=== PATIENT | male | born 1935 | race Caucasian/White ===

== ENCOUNTER 2018-11-20 08:46 | Day surgery (SDC) | payer MEDICARE, OTHER ==
[~2018-11-20] VITALS: Ht 167.6 cm; Wt 103.0 kg
[~2018-11-20 08:46] MED LIST: ALBU90OI INH; DOCU100 PO; FURO40 PO; Flomax0.4 MG PO; HYDACE25S PR; Klor-Con 1010 MEQ PO; LEVO750 PO; LISI5 PO; METO50 PO; METO50ER PO; METR500 PO; Norco 5-325 Ta1 EACH PO; OMEP20ER; OMEPRAZOLE20 MG PO; POTCHL20ER PO; Prednisone20 MG PO; Prinivil10 MG PO; Senna8.6 MG PO; TRAM50 PO; WARF5 PO; XARELTO10 MG PO; XARELTO20 MG PO; [UNRECOGNIZED DRUG - REMARK]
--- NOTE | 2018-11-20 09:25 | NUR ---
INTO SDS TWO IDENTIFIERS. ADMISSION STARTED.
--- NOTE | 2018-11-20 10:02 | NUR ---
BENY FORM SIGNED. CLIP AND PREP DONE BY PEDRO LUIS.[facility]. ANTIBIOTIC ORDERED OKAY TO GIVE PER PHYSCICIAM WITH PATIENT NOTED ALLERGIES.
--- NOTE | 2018-11-20 12:20 | NUR ---
11/20/18 1220 Dallas Arrington ANCEF 2GM GIVEN IVPB @1139, right wrist
--- NOTE | 2018-11-20 15:05 | NUR ---
PT ARRIVED TO UNIT VIA STRETCHER, A/0 X 4, PLEASANT. NO N/V, PAIN IN R QUADRANTS 04/07, MEDICATED PER NOV, WILL REASSESS. VSS, POST OP VS COMMENCED
--- NOTE | 2018-11-20 17:52 | NUR ---
shift summary: pt tolerated PO intake, no n/v. pt states he is hungry. pt tolerated ambulating to bathroom with standby assist. pt states pain controlled per MAR. post op vss and complete. pt remained a/o x 4, pleasant/cooperative. pt received on visitor post op
--- NOTE | 2018-11-21 07:00 | NUR ---
A+O, ROSEBUD, call light in reach, saline locked, successfully treated for abdm pain but still felt pressur, sbar report provided to oncoming day shift
[2018-11-21] MEDS ORDERED: HYDR1TAB94 PO (12:35)
--- NOTE | 2018-11-21 14:35 | NUR ---
DISCHARGE SUMMARY: TOLERATING PO INTAKE. REPORTS PAIN WELL CONTROLLED WITH PO PAIN MED. HE IS INDEPEND IN ROOM. VSS. NO ACUTE CHANGES T/O DAY. HE IS DRESSING NOW AND RIDE IS ON THE WAY. D/C INSTRUCTIONS PROVIDED TO PT WITH HARD SCRIPT FOR DK.
== END 2018-11-21 14:56 | disposition home or self-care (01) ==
LOC: ORSCMMR 08:46 → ORD 10:30 → ORSCMMR 10:30 → SURS 14:22 → ORSCMMR 11-21 14:56
DX: K80.11 Calculus of gallbladder with chronic cholecystitis with obstruction (principal); K42.9 Umbilical hernia without obstruction or gangrene; I10 Essential (primary) hypertension; I48.91 Unspecified atrial fibrillation; Z79.01 Long term (current) use of anticoagulants; K21.9 Gastro-esophageal reflux disease without esophagitis; Z86.73 Personal history of transient ischemic attack (TIA), and cerebral infarction without residual deficits; E66.9 Obesity, unspecified; Z68.35 Body mass index [BMI] 35.0-35.9, adult; Z79.899 Other long term (current) drug therapy
CPT/HCPCS: 74300; 88304; C1729; J0690; J1100; J1885; J2370; J2405; J2710; J3010; J7120

== ENCOUNTER 2020-01-30 11:34 | Emergency (ER) | payer MEDICARE, OTHER ==
[~2020-01-30] VITALS: Ht 170.2 cm; Wt 104.3 kg
[~2020-01-30 11:34] MED LIST changes: +HYDR1TAB94 PO
[2020-01-30] MEDS ORDERED: Kristalose20 GM PO (14:04)
[2020-01-30] MEDS ORDERED: Miralax17 GM PO (14:04)
== END 2020-01-30 14:22 | disposition home or self-care (01) ==
LOC: ER 11:34
DX: K59.00 Constipation, unspecified (principal); I10 Essential (primary) hypertension; E11.9 Type 2 diabetes mellitus without complications; Z88.2 Allergy status to sulfonamides; Z88.0 Allergy status to penicillin; Z79.899 Other long term (current) drug therapy; Z79.51 Long term (current) use of inhaled steroids
CPT/HCPCS: 74018; 99283-25

== ENCOUNTER 2020-05-25 17:53 | Inpatient (IN) | payer MEDICARE, OTHER ==
[~2020-05-25] VITALS: Ht 165.1 cm; Wt 104.4 kg
[~2020-05-25 17:53] MED LIST changes: -FURO40 PO; -Klor-Con 1010 MEQ PO; +Kristalose20 GM PO; -METO50ER PO; +Miralax17 GM PO; -XARELTO20 MG PO
[2020-05-25 19:00] LABS: BASOPHILS ABSOLUTE AUTO 0.07 K/mm3 (0.00-0.23); BASOPHILS PERCENT AUTO 1 % (0-2); EOSINOPHILS ABSOLUTE AUTO 0.16 K/mm3 (0.00-0.68); EOSINOPHILS PERCENT AUTO 3 % (0-6); Hematocrit 44.2 % (37.0-53.0); IMMATURE GRAN ABSOLUTE AUTO 0.07 K/mm3 (0.00-0.10); IMMATURE GRAN PERCENT AUTO 1 % (0-1); LYMPHOCYTES ABSOLUTE AUTO 1.31 K/mm3 (0.84-5.20); LYMPHOCYTES PERCENT AUTO 21 % (21-46); MONOCYTES ABSOLUTE AUTO 0.77 K/mm3 (0.16-1.47); MONOCYTES PERCENT AUTO 13 % (4-13); Mean Corpuscular HGB 35.1 pg (26.0-34.0); Mean Corpuscular HGB Conc 33.9 g/dL (31.5-36.5); Mean Corpuscular Volume 104 fL (80-100); Mean Platelet Volume 9.6 fL (9.1-12.4); NEUTROPHILS ABSOLUTE AUTO 3.74 K/mm3 (1.96-9.15); NEUTROPHILS PERCENT AUTO 61 % (41-73); Platelet Count 148 K/mm3 (150-400); RDW Coefficient Variation 13.6 % (11.7-14.2); RDW Standard Deviation 52.3 fL (35.1-46.3); Red Blood Cell Count 4.27 M/mm3 (4.30-5.90); White Blood Cell Count 6.12 K/mm3 (4.00-11.30)
[2020-05-25 19:58] LABS: Albumin, Blood 3.6 g/dL (3.4-5.0); Albumin/Globulin Ratio 0.9 (0.8-1.8); Bilirubin, Total 0.7 mg/dL (0.1-1.0); Bun/Creatinine Ratio 6.2 (12.0-20.0); Calcium, Blood 8.3 mg/dL (8.5-10.1); Creatinine, Blood 1.29 mg/dL (0.60-1.20); Globulin, Blood 3.9 g/dL (2.2-4.0); Potassium, Blood 3.9 mmol/L (3.5-5.5); Total Protein, Blood 7.5 g/dL (6.4-8.2)
[2020-05-25] MEDS ORDERED: FURO40 PO (22:34)
[2020-05-25] MEDS ORDERED: Prinivil10 MG PO (22:35)
[2020-05-25] MEDS ORDERED: Klor-Con 1010 MEQ PO (22:35)
[2020-05-25] MEDS ORDERED: XARELTO20 MG PO (22:35)
[2020-05-25] MEDS ORDERED: PARO10 PO (22:36)
[2020-05-25] MEDS ORDERED: SEROQUEL100 MG PO (22:37)
[2020-05-25] MEDS ORDERED: METO50ER PO (22:37)
--- NOTE | 2020-05-26 00:24 | NUR ---
REPORT RECEIVED FROM LEEED RN. PT TRANSPORTED TO MEDICAL FLOOR VIA GURNEY, AMBULATED TO BED ON ARRIVAL TO ROOM. ORIENTED PT TO ROOM AND UNIT, SITUATED IN BED. NO S/S ACUTE DISTRESS NOTED, RESPS EVEN AND UNLABORED. DENIES NEEDS AT THIS TIME, CALL LIGHT, POSSESSIONS IN REACH, WILL CONTINUE TO MONITOR.
[2020-05-26 01:44] LABS: Anion Gap 7 mmol/L (6-16); Blood Urea Nitrogen 8 mg/dL (8-24); Bun/Creatinine Ratio 5.9 (12.0-20.0); CO2, Blood 24 mmol/L (21-32); Calcium, Blood 7.8 mg/dL (8.5-10.1); Chloride, Blood 107 mmol/L (98-108); Creatinine, Blood 1.36 mg/dL (0.60-1.20); Glomerular Filtration Rate 53 (60-); Glucose, Blood 112 mg/dL (70-99); Potassium, Blood 3.6 mmol/L (3.5-5.5); Sodium, Blood 138 mmol/L (136-145)
[2020-05-26 01:48] LABS: BASOPHILS ABSOLUTE AUTO 0.07 K/mm3 (0.00-0.23); BASOPHILS PERCENT AUTO 1 % (0-2); EOSINOPHILS ABSOLUTE AUTO 0.15 K/mm3 (0.00-0.68); EOSINOPHILS PERCENT AUTO 2 % (0-6); Hematocrit 42.6 % (37.0-53.0); Hemoglobin 13.9 g/dL (13.5-17.5); IMMATURE GRAN ABSOLUTE AUTO 0.12 K/mm3 (0.00-0.10); IMMATURE GRAN PERCENT AUTO 2 % (0-1); LYMPHOCYTES ABSOLUTE AUTO 1.31 K/mm3 (0.84-5.20); LYMPHOCYTES PERCENT AUTO 20 % (21-46); MONOCYTES ABSOLUTE AUTO 1.03 K/mm3 (0.16-1.47); MONOCYTES PERCENT AUTO 15 % (4-13); Mean Corpuscular HGB 34.5 pg (26.0-34.0); Mean Corpuscular HGB Conc 32.6 g/dL (31.5-36.5); Mean Corpuscular Volume 106 fL (80-100); Mean Platelet Volume 9.4 fL (9.1-12.4); NEUTROPHILS ABSOLUTE AUTO 4.05 K/mm3 (1.96-9.15); NEUTROPHILS PERCENT AUTO 60 % (41-73); Platelet Count 131 K/mm3 (150-400); RDW Coefficient Variation 13.5 % (11.7-14.2); RDW Standard Deviation 53.5 fL (35.1-46.3); Red Blood Cell Count 4.03 M/mm3 (4.30-5.90); White Blood Cell Count 6.73 K/mm3 (4.00-11.30)
--- NOTE | 2020-05-26 04:24 | NUR ---
SHIFT SUMMARY PT HAS HAD NO ACUTE EVENTS SINCE ARRIVAL TO MEDICAL FLOOR. SLEPT ON AND OFF. WAS MONITORED EVERY 1-2 HOURS WITH NEEDS MET. ASLEEP AT THIS TIME. AWAITING ORTHOPEDIC CONSULT. DENIES NEEDS AT THIS TIME. CALL LIGHT, POSSESSIONS IN REACH, WILL CONTINUE TO MONITOR.
--- NOTE | 2020-05-26 16:27 | NUR ---
SHIFT SUMMARY- PT IS A/O, PLESANT AND COOPERATIVE. HE HAS SOME INTERMITENT CONFUSION. HE IS RECIEVING IV ABX. HE IS EATING AND DRINKING WELL. HE IS 1 ASSIST TO THE RESTROOM. HE TOOK A SHOWER THIS MORNING. CONSULTATION TO DR. CERVANTES BY NIGHT RN. CALLED AND LEFT MESSAGE TO VERIFY.
[2020-05-27] MEDS ORDERED: QUET100 PO (03:24)
[2020-05-27] MEDS ORDERED: PARO10 PO (03:27)
--- NOTE | 2020-05-27 03:54 | NUR ---
SHIFT SUMMARY: VSS. AFEB. AAOX3. 02 97% ON RA. LLE WHEEPING CLEAR SEROUS FLUID FROM OPEN BLISTER ON MEDIAL ASPECT OF CALF. INTACT BLISTERS SCATTERED ACROSS LEFT CALF/KAM. BRUISING VISIBLE THROUGHOUT LEFT CALF/KAM/ANKLE. LLE MORE SWOLLEN THAN RIGH; NON-PITTING EDEMA. DENIES N/T. DENIES PAIN. STATES LLE HURTS MORE IN THE AM. UP INDEPENDENTLY IN ROOM. ABD CONT TO APPEAR LARGE, ROUND, AND DISTENDED. PT STATES IT IS NORMAL FOR HIS ABD TO APPEAR LARGER OR SMALLER DEPENDING ON THE DAY. REPORTS NORMAL BM'S. STOOL SOFTENERS ADMINISTERED PER EMAR. DENIES N/V. IV ABT INFUSED PER ORDERS. NO ACUTE CHANGES OVERNIGHT. WILL CONT TO MONITOR.
[2020-05-27 06:03] LABS: BASOPHILS ABSOLUTE AUTO 0.04 K/mm3 (0.00-0.23); BASOPHILS PERCENT AUTO 1 % (0-2); EOSINOPHILS ABSOLUTE AUTO 0.19 K/mm3 (0.00-0.68); EOSINOPHILS PERCENT AUTO 3 % (0-6); Hematocrit 38.2 % (37.0-53.0); Hemoglobin 12.7 g/dL (13.5-17.5); IMMATURE GRAN ABSOLUTE AUTO 0.08 K/mm3 (0.00-0.10); IMMATURE GRAN PERCENT AUTO 1 % (0-1); LYMPHOCYTES ABSOLUTE AUTO 1.18 K/mm3 (0.84-5.20); LYMPHOCYTES PERCENT AUTO 21 % (21-46); MONOCYTES ABSOLUTE AUTO 0.92 K/mm3 (0.16-1.47); MONOCYTES PERCENT AUTO 16 % (4-13); Mean Corpuscular HGB 34.5 pg (26.0-34.0); Mean Corpuscular HGB Conc 33.2 g/dL (31.5-36.5); Mean Corpuscular Volume 104 fL (80-100); Mean Platelet Volume 9.6 fL (9.1-12.4); NEUTROPHILS ABSOLUTE AUTO 3.21 K/mm3 (1.96-9.15); NEUTROPHILS PERCENT AUTO 57 % (41-73); Platelet Count 130 K/mm3 (150-400); RDW Coefficient Variation 13.5 % (11.7-14.2); RDW Standard Deviation 51.8 fL (35.1-46.3); Red Blood Cell Count 3.68 M/mm3 (4.30-5.90); White Blood Cell Count 5.62 K/mm3 (4.00-11.30)
[2020-05-27 06:19] LABS: Anion Gap 6 mmol/L (6-16); Blood Urea Nitrogen 10 mg/dL (8-24); Bun/Creatinine Ratio 8.3 (12.0-20.0); CO2, Blood 23 mmol/L (21-32); Calcium, Blood 8.8 mg/dL (8.5-10.1); Chloride, Blood 108 mmol/L (98-108); Creatinine, Blood 1.21 mg/dL (0.60-1.20); Glomerular Filtration Rate >60 (60-); Glucose, Blood 108 mg/dL (70-99); Sodium, Blood 137 mmol/L (136-145)
--- NOTE | 2020-05-27 10:06 | NUR ---
LACTATED RINGER RECEIVED VERBAL ORDER TO D/C LR PER DR. CARDENAS.
--- NOTE | 2020-05-27 17:07 | NUR ---
Shift Summary A/Ox3, pleasant and cooperative with care. Up in room independently, calls for needs appropriately. No c/o pain in lower left extremity. Dr. Quinn consulted with patiet this morning, rapid COVID completed, planning for I&D tomorrow. Patient is to be NPO after midnight tonight. Patient appears to be slightly dyspneic with exertion this morning though denies SOB. LR d/c, diuretics ordered by Hospitalist. L/S with crackles at bases with mild wheezes all over. SCD to RLE. Good appetite. Blisters continue to drain. No new concerns, will continue to monitor.
--- NOTE | 2020-05-28 03:59 | NUR ---
SHIFT SUMMARY: BP 173/97 IMMEDIATELY AFTER AMBULATING FROM THE BATHROOM. REASSESED AFTER PT RELAXED, 133/76. 02 SAT 96-97% ON RA. MINOR EXERTIONAL SOB. EXPIRATORY WHEEZES AUSCULTED IN B UPPER LOBES AND R MID LOBE. BASES DIM, WITHOUT CRACKLES. NO COUGHING. PT REPORTING MINIMAL SLEEP. MELATONIN GIVEN. UP FREQUENTLY TO VOID D/T LASIX. NO WHEEPING FROM LLE. CONT W/ ECCHYMOSIS AND SCATTERED INTACT BLISTERS. PEDAL PULSES PALPABLE BILATERALLY. PT DENIES PAIN IN LLE EXCEPT WHEN HE PRESSES ON THE SUPERIOR/MEDIAL ASPECT OF CALF. DOES NOT WANT PAIN MEDS AT THIS TIME. NO ACUTE CONCERNS. IV ABT INFUSED ORDERED. PT NPO IN PREPARATION FOR POSSIBLE I&D TODAY.
[2020-05-28 05:01] LABS: BASOPHILS ABSOLUTE AUTO 0.04 K/mm3 (0.00-0.23); BASOPHILS PERCENT AUTO 1 % (0-2); EOSINOPHILS ABSOLUTE AUTO 0.24 K/mm3 (0.00-0.68); EOSINOPHILS PERCENT AUTO 4 % (0-6); Hemoglobin 11.9 g/dL (13.5-17.5); IMMATURE GRAN PERCENT AUTO 2 % (0-1); LYMPHOCYTES ABSOLUTE AUTO 1.45 K/mm3 (0.84-5.20); LYMPHOCYTES PERCENT AUTO 23 % (21-46); MONOCYTES ABSOLUTE AUTO 1.06 K/mm3 (0.16-1.47); MONOCYTES PERCENT AUTO 17 % (4-13); Mean Corpuscular HGB 34.4 pg (26.0-34.0); Mean Corpuscular HGB Conc 33.1 g/dL (31.5-36.5); Mean Corpuscular Volume 104 fL (80-100); Mean Platelet Volume 9.6 fL (9.1-12.4); NEUTROPHILS ABSOLUTE AUTO 3.49 K/mm3 (1.96-9.15); NEUTROPHILS PERCENT AUTO 55 % (41-73); Platelet Count 116 K/mm3 (150-400); RDW Coefficient Variation 13.4 % (11.7-14.2); RDW Standard Deviation 51.8 fL (35.1-46.3); Red Blood Cell Count 3.46 M/mm3 (4.30-5.90); White Blood Cell Count 6.38 K/mm3 (4.00-11.30)
[2020-05-28 05:30] LABS: Albumin, Blood 3.1 g/dL (3.4-5.0); Anion Gap 6 mmol/L (6-16); Blood Urea Nitrogen 10 mg/dL (8-24); CO2, Blood 25 mmol/L (21-32); Calcium, Blood 8.5 mg/dL (8.5-10.1); Chloride, Blood 105 mmol/L (98-108); Creatinine, Blood 1.11 mg/dL (0.60-1.20); Glomerular Filtration Rate >60 (60-); Glucose, Blood 106 mg/dL (70-99); Phosphorus, Blood 3.2 mg/dL (2.5-4.9); Potassium, Blood 3.9 mmol/L (3.5-5.5); Sodium, Blood 136 mmol/L (136-145)
--- NOTE | 2020-05-28 18:09 | NUR ---
SHIFT SUMMARY- PT IS A/O, PLESANT AND COOPERATIVE. HE DOES HAVE SOME INTERMITENT CONFUSION. HE IS RECIEVING IV ABX. HE IS EATING AND DRINKING WELL. DR. HOLDER CONSULTED TODAY, WILL NOT PREFORM AN I/D ON THE LEG. PT DEVELOPED A RASH ON HIS BACK. DR. CERVANTES PRESCRIBED ANTIHISTAMINE AND OINTMENT FOR IT.
--- NOTE | 2020-05-29 03:56 | NUR ---
SHIFT SUMMARY: VSS. AFEB. AAOX3. COMMUNICATING NEEDS. DENIES LLE PAIN. ECCHYMOSIS ON LLE APPEARS TO BE DARKER AND MORE WIDESPREAD. BRUISING VISIBLE ON L POSTERIOR THIGH, ENTIRE L CALF/KAM, AND L ANKLE. CONT W/ BLE DEPENDENT EDEMA. MANY INTACT BLISTERS AND A COUPLE OPEN WHEEPING BLISTERS ON LLE. UP AMB WITHOUT DIFFICULTY. ABD SOFTER TO PALPATION TODAY, NON-TENDER. PT STATES ABD STILL APPEARS LARGE COMPARED TO BASELINE. BT ACTIVE. REPORTS SEVERAL SOFT BM'S PER DAY. BLAIRE PO INTAKE. LSCTA. APPEARS TO BE GETTING MORE SLEEP TONIGHT. IV ABT INFUSED ORDERED. STATES TOP KENALOG CREAM HELPFUL W/ITCHING OF RASH ON BACK. NO ACUTE CONCERNS AT THIS TIME.
[2020-05-29] MEDS ORDERED: TRIA15CR3 TOP (11:03)
--- NOTE | 2020-05-29 12:41 | NUR ---
PATIENT DISCHARGE: PATIENT DISCHARGED TO HOME THIS SHIFT. MEDICATION RECONCILIATION COMPLETED; MED LIST FAXED TO [facility]. DISCHARGE EDUCATION COMPLETED WITH PATIENT. PATIENT TRANSPORTED TO EXIT BY [facility] STAFF WITH WHEELCHAIR AT 1215. PATIENT DEPARTED [facility] VIA PRIVATE AUTO.
== END 2020-05-29 12:15 | disposition home or self-care (01) | DRG 556 ==
LOC: ER 17:53 → MEDS 22:36 → ER 05-26 00:13 → MEDS 05-26 00:13 → ENPENDDIS 05-29 10:21 → MEDS 05-29 12:15
PROVIDERS: Internal Medicine; Physician Assistant; ADMIT Family Medicine
DX: M79.81 Nontraumatic hematoma of soft tissue (principal); N17.9 Acute kidney failure, unspecified; R65.10 Systemic inflammatory response syndrome (SIRS) of non-infectious origin without acute organ dysfunction; E87.2 Acidosis; Z20.828 Contact with and (suspected) exposure to other viral communicable diseases; L23.9 Allergic contact dermatitis, unspecified cause; Z86.718 Personal history of other venous thrombosis and embolism; T45.515A Adverse effect of anticoagulants, initial encounter; I12.9 Hypertensive chronic kidney disease with stage 1 through stage 4 chronic kidney disease, or unspecified chronic kidney disease; E11.22 Type 2 diabetes mellitus with diabetic chronic kidney disease; N18.2 Chronic kidney disease, stage 2 (mild); D69.6 Thrombocytopenia, unspecified; E66.9 Obesity, unspecified; Z68.38 Body mass index [BMI] 38.0-38.9, adult; K59.00 Constipation, unspecified
CPT/HCPCS: 36415; 73700; 80048; 80053; 80069; 82947; 83605; 83880; 85025; 85651; 86140; 87040; 93971; 96365; 96367; 99285-25; A9270; J0690; J3370; J7030; J7050; J7120; Q0163; U0002

== ENCOUNTER 2020-06-01 13:06 | Emergency (ER) | payer MEDICARE, OTHER ==
[~2020-06-01] VITALS: Ht 170.2 cm; Wt 104.3 kg
[~2020-06-01 13:06] MED LIST changes: +FURO40 PO; +Klor-Con 1010 MEQ PO; +METO50ER PO; +PARO10 PO; +QUET100 PO; +SEROQUEL100 MG PO; +TRIA15CR3 TOP; +XARELTO20 MG PO
[2020-06-01 13:34] LABS: BASOPHILS ABSOLUTE AUTO 0.06 K/mm3 (0.00-0.23); BASOPHILS PERCENT AUTO 1 % (0-2); EOSINOPHILS ABSOLUTE AUTO 0.24 K/mm3 (0.00-0.68); EOSINOPHILS PERCENT AUTO 4 % (0-6); Hematocrit 42.2 % (37.0-53.0); Hemoglobin 14.2 g/dL (13.5-17.5); IMMATURE GRAN ABSOLUTE AUTO 0.09 K/mm3 (0.00-0.10); IMMATURE GRAN PERCENT AUTO 2 % (0-1); LYMPHOCYTES ABSOLUTE AUTO 1.28 K/mm3 (0.84-5.20); LYMPHOCYTES PERCENT AUTO 22 % (21-46); MONOCYTES ABSOLUTE AUTO 0.92 K/mm3 (0.16-1.47); MONOCYTES PERCENT AUTO 16 % (4-13); Mean Corpuscular HGB 34.9 pg (26.0-34.0); Mean Corpuscular HGB Conc 33.6 g/dL (31.5-36.5); Mean Corpuscular Volume 104 fL (80-100); Mean Platelet Volume 9.5 fL (9.1-12.4); NEUTROPHILS PERCENT AUTO 56 % (41-73); Platelet Count 192 K/mm3 (150-400); RDW Coefficient Variation 13.4 % (11.7-14.2); RDW Standard Deviation 51.3 fL (35.1-46.3); Red Blood Cell Count 4.07 M/mm3 (4.30-5.90); White Blood Cell Count 5.89 K/mm3 (4.00-11.30)
[2020-06-01 14:01] LABS: Albumin, Blood 3.9 g/dL (3.4-5.0); Bilirubin, Total 0.8 mg/dL (0.1-1.0); Bun/Creatinine Ratio 9.1 (12.0-20.0); Calcium, Blood 8.7 mg/dL (8.5-10.1); Creatinine, Blood 1.54 mg/dL (0.60-1.20); Globulin, Blood 3.9 g/dL (2.2-4.0); Potassium, Blood 4.2 mmol/L (3.5-5.5); Total Protein, Blood 7.8 g/dL (6.4-8.2)
[2020-06-01] MEDS ORDERED: TRAZ50 (14:58)
[2020-06-01] MEDS ORDERED: Norco 5-325 Ta1 EACH PO (16:35)
== END 2020-06-01 17:01 | disposition home or self-care (01) ==
LOC: ER 13:06
PROVIDERS: Emergency Medicine
DX: S80.12XA Contusion of left lower leg, initial encounter (principal); I10 Essential (primary) hypertension; E11.9 Type 2 diabetes mellitus without complications; Z86.718 Personal history of other venous thrombosis and embolism; E66.9 Obesity, unspecified; Z68.36 Body mass index [BMI] 36.0-36.9, adult; Z88.2 Allergy status to sulfonamides; Z88.0 Allergy status to penicillin; Z79.899 Other long term (current) drug therapy; X58.XXXA Exposure to other specified factors, initial encounter
CPT/HCPCS: 73700; 80053; 85025; 99284-25; A9270-GY

== ENCOUNTER 2021-12-04 11:09 | Emergency (ER) | payer MEDICARE, OTHER ==
[~2021-12-04] VITALS: Ht 170.2 cm; Wt 104.3 kg
[~2021-12-04 11:09] MED LIST changes: +TRAZ50
[2021-12-04] MEDS ORDERED: HYDR1TAB94 PO (12:02)
[2021-12-04] MEDS ORDERED: Robaxin750 MG PO (12:02)
[2021-12-04] MEDS ORDERED: METPRE4DP PO (12:02)
== END 2021-12-04 12:49 | disposition home or self-care (01) ==
LOC: ER 11:09
DX: S16.1XXA Strain of muscle, fascia and tendon at neck level, initial encounter (principal); M54.12 Radiculopathy, cervical region; Z88.0 Allergy status to penicillin; Z88.2 Allergy status to sulfonamides; Z79.899 Other long term (current) drug therapy; I10 Essential (primary) hypertension; E11.9 Type 2 diabetes mellitus without complications; Z86.718 Personal history of other venous thrombosis and embolism; X58.XXXA Exposure to other specified factors, initial encounter
CPT/HCPCS: 93005; 93010; 96372; 99283-25; A9270; J3010

== ENCOUNTER → 2022-02-15 | Outpatient (CLI) | payer MEDICARE, OTHER ==
[~2022-02-15] MED LIST changes: +METPRE4DP PO; +Robaxin750 MG PO
[2022-02-15 14:17] LABS: Source, Urine Clean Catch
[2022-02-15 14:21] LABS: Appearance, Urine Hazy (Clear); Bilirubin, Urine Neg (Neg); Blood, Urine 3+ (Neg); Color, Urine Yellow (P-Yellow); Glucose Qualitative, Urine Neg (Neg); Ketones, Urine 1+ (Neg); Leukocyte Esterase, Urine 1+ (Neg); Nitrite, Urine Neg (Neg); Protein, Urine 3+ (Neg); Urobilinogen, Urine NORM (Normal)
[2022-02-15 14:31] LABS: Hyaline Casts 0-2 /lpf (0-2)
[2022-02-15 14:46] LABS: Bacteria Many /hpf; Calcium Oxalate Crystals Mod /hpf; Uric Acid Crystals Mod /hpf
[2022-02-15 14:50] LABS: Amorphous Light (0-Heavy); Red Blood Cells, Urine 0-2 /hpf (0-2); Squamous Epithelial Cells Not Seen /hpf (Few)
== END | disposition home or self-care (01) ==
LOC: LAB 13:30 → LAB SHORT 13:30
PROVIDERS: Radiology Radiation Oncology
DX: Z51.0 Encounter for antineoplastic radiation therapy (principal); C61 Malignant neoplasm of prostate
CPT/HCPCS: 81001

== ENCOUNTER 2022-11-17 15:14 | Inpatient (IN) | payer MEDICARE, OTHER ==
[~2022-11-17] VITALS: Ht 167.6 cm; Wt 99.3 kg
[~2022-11-17 15:14] MED LIST changes: +TRAZ100 PO; -TRAZ50
[2022-11-17 15:46] LABS: BASOPHILS ABSOLUTE AUTO 0.03 K/mm3 (0.00-0.23); BASOPHILS PERCENT AUTO 0 % (0-2); EOSINOPHILS ABSOLUTE AUTO 0.07 K/mm3 (0.00-0.68); EOSINOPHILS PERCENT AUTO 1 % (0-6); Hematocrit 40.5 % (37.0-53.0); Hemoglobin 13.6 g/dL (13.5-17.5); IMMATURE GRAN ABSOLUTE AUTO 0.17 K/mm3 (0.00-0.10); IMMATURE GRAN PERCENT AUTO 1 % (0-1); LYMPHOCYTES ABSOLUTE AUTO 0.61 K/mm3 (0.84-5.20); LYMPHOCYTES PERCENT AUTO 5 % (21-46); MONOCYTES PERCENT AUTO 19 % (4-13); Mean Corpuscular HGB 30.8 pg (26.0-34.0); Mean Corpuscular HGB Conc 33.6 g/dL (31.5-36.5); Mean Corpuscular Volume 92 fL (80-100); NEUTROPHILS ABSOLUTE AUTO 9.15 K/mm3 (1.96-9.15); NEUTROPHILS PERCENT AUTO 74 % (41-73); Platelet Count 130 K/mm3 (150-400); RDW Coefficient Variation 15.1 % (11.7-14.2); RDW Standard Deviation 50.4 fL (35.1-46.3); Red Blood Cell Count 4.42 M/mm3 (4.30-5.90); White Blood Cell Count 12.33 K/mm3 (4.00-11.30)
[2022-11-17 16:06] LABS: Albumin, Blood 3.3 g/dL (3.4-5.0); Albumin/Globulin Ratio 0.9 (0.8-1.8); Bilirubin, Total 1.5 mg/dL (0.1-1.0); Bun/Creatinine Ratio 12.5 (12.0-20.0); Creatinine, Blood 1.68 mg/dL (0.60-1.20); Globulin, Blood 3.8 g/dL (2.2-4.0); Potassium, Blood 4.2 mmol/L (3.5-5.5); Total Protein, Blood 7.1 g/dL (6.4-8.2)
[2022-11-17 16:20] LABS: Source, Urine Voided
[2022-11-17 16:24] LABS: Appearance, Urine Clear (Clear); Bilirubin, Urine Neg (Neg); Blood, Urine 5+ (Neg); Color, Urine Yellow (P-Yellow); Glucose Qualitative, Urine Neg (Neg); Ketones, Urine 3+ (Neg); Leukocyte Esterase, Urine Neg (Neg); Nitrite, Urine Neg (Neg); Protein, Urine 3+ (Neg); Specific Gravity, Urine 1.025 (1.003-1.022); Urobilinogen, Urine NORM (Normal)
[2022-11-17 16:52] LABS: Red Blood Cells, Urine 0-2 /hpf (0-2)
[2022-11-17 16:53] LABS: Amorphous Light (0-Heavy); Bacteria Few /hpf; Squamous Epithelial Cells Few /hpf (Few)
[2022-11-17 16:54] LABS: Mucus Light (0-Heavy)
[2022-11-17 17:49] LABS: Creatine Kinase MB 27.3 ng/mL (0.0-3.6); Creatine Kinase MB Index 0.5 (0.0-4.0)
[2022-11-18 03:37] LABS: BASOPHILS ABSOLUTE AUTO 0.06 K/mm3 (0.00-0.23); BASOPHILS PERCENT AUTO 1 % (0-2); EOSINOPHILS ABSOLUTE AUTO 0.06 K/mm3 (0.00-0.68); EOSINOPHILS PERCENT AUTO 1 % (0-6); Hematocrit 36.4 % (37.0-53.0); Hemoglobin 12.4 g/dL (13.5-17.5); IMMATURE GRAN ABSOLUTE AUTO 0.07 K/mm3 (0.00-0.10); IMMATURE GRAN PERCENT AUTO 1 % (0-1); LYMPHOCYTES PERCENT AUTO 13 % (21-46); MONOCYTES ABSOLUTE AUTO 2.15 K/mm3 (0.16-1.47); MONOCYTES PERCENT AUTO 24 % (4-13); Mean Corpuscular HGB Conc 34.1 g/dL (31.5-36.5); Mean Corpuscular Volume 91 fL (80-100); Mean Platelet Volume 9.4 fL (9.1-12.4); NEUTROPHILS ABSOLUTE AUTO 5.42 K/mm3 (1.96-9.15); NEUTROPHILS PERCENT AUTO 60 % (41-73); Platelet Count 117 K/mm3 (150-400); RDW Coefficient Variation 15.2 % (11.7-14.2); RDW Standard Deviation 51.2 fL (35.1-46.3); White Blood Cell Count 8.96 K/mm3 (4.00-11.30)
[2022-11-18 05:19] LABS: Magnesium, Blood 2.2 mg/dL (1.6-2.4); Uric Acid, Blood 7.4 mg/dL (3.5-7.2)
[2022-11-18 05:21] LABS: Albumin, Blood 2.8 g/dL (3.4-5.0); Albumin/Globulin Ratio 0.8 (0.8-1.8); Bilirubin, Total 1.1 mg/dL (0.1-1.0); Bun/Creatinine Ratio 13.3 (12.0-20.0); Calcium, Blood 8.4 mg/dL (8.5-10.1); Creatinine, Blood 1.35 mg/dL (0.60-1.20); Globulin, Blood 3.4 g/dL (2.2-4.0); Phosphorus, Blood 2.8 mg/dL (2.5-4.9); Potassium, Blood 4.1 mmol/L (3.5-5.5); Total Protein, Blood 6.2 g/dL (6.4-8.2)
--- NOTE | 2022-11-18 06:12 | NUR ---
SHIFT SUMMARY A/OX3, [place], FORGETFUL. 1-2P ASSIST WITH FWW AND GB TO BSC. GENERALIZED WEAKNESS AND NOTED TO HAVE SEVERAL FALLS AT HOME. C/O PAIN TO LUQ, MEDICATED PER EMAR. TELE FLIPS BETWEEN SR/AFIB. DENIES CHEST PAIN/PRESSURE. SPO2 >92% ON RA. VSS, NO ACUTE CHANGES AT THIS TIME. BED IN LOWEST POSITION WITH CALL LIGHT IN REACH. WILL CONTINUE TO MONITOR AND REPORT TO ONCOMING RN. VSS, NO ACUTE CHANGES AT THIS TIME. BED IN LOWEST POSITION WITH CALL LIGHT IN REACH. WILL CONTINUE TO MONITOR AND REPORT TO ONCOMING RN.
--- NOTE | 2022-11-18 09:08 | NUR ---
AM NOTE: PATIENT ALERT AND ORIENTED X2-3. VERY FORGETFULL AND POOR HISTORIAN. ASKING REPETATIVE QUESTIONS AND SEEMS TO BE WORD SEARCHING WELL STUTTERING WHEN TALKING. PT/OT ORDERS IN PLACE. PERRLA. [place]. ON ROOM AIR SATING ABOVE 95%. DENIES SOB. LUNGS SOUNDING CLEAR AND DIM IN BASES. DENIES COUGH. TELE SHOWING SINUS RHYTHM THIS AM WITH HR 80'S. BP STABLE. NOC SHIFT REPORTED PATIENT CONVERTING BACK AND FORTH FROM AFIB TO SR. NO TELE EVENTS THIS AM. DR. STARK AWARE. PATIENT MADE MEDICAL STATUS WITH TELE. DENIES ABDOMINAL PAIN/NAUSEA. EATING WNL. AC BLOOD SUGAR CHECKS. SWALLOW WNL. URINATING IN URINAL. BLADDER SCAN DONE THIS AM SHOWING 248 ML. NS INFUSING AT 150 ML/HR. PLAN TO RECHECK TROP AND CPK LABS AT 1200. WAITING FOR ECHO TO BE DONE. SKIN OVERALL BRUISED AND SOME ABRASIONS ON BILATERAL KNEES AND ELBOWS. BED ALARM IN PLACE. WILL CONTINUE TO MONITOR.
--- NOTE | 2022-11-18 09:44 | NUR ---
SON JEY IN TO VISIT WITH PATIENT. JEY STATES PATIENT'S MENTATION HAS BEEN DECLINING AND THAT THIS CONFUSION IS NOT NEW. SON STATES "HE HAS BEEN GOING [place]". THIS RN UPDATED ON DOCTORS MORNING ROUNDS AND PLAN OF CARE FOR THIS MORNING AND AFTERNOON.
[2022-11-18] MEDS ORDERED: Flomax0.4 MG PO (14:32)
[2022-11-18] MEDS ORDERED: GABA300 PO (14:34)
[2022-11-18] MEDS ORDERED: TIZA4 PO (14:34)
--- NOTE | 2022-11-18 14:36 | NUR ---
DAUGHTER AT BEDSIDE AND UPDATED ON CURRENT PLAN OF CARE AND PATIENT CONDITION. DR. MAR OFFICE CALLED AND PATIENT MEDICATION LIST FAXED TO PCU. MED REC UPDATED AND COMPLETED. PATIENT RESTING IN BED AT THIS TIME. UP WITH OT AND PT. PATIENT NEEDING REMINDERS TO GET UP AND USE URINAL EVERY FEW HOURS. X2 VOID THIS AM IN TOILET AND ADDTIONAL 450 ML VOID AFTER LUNCH. NS CONTINUES TO INFUSE AT 150 ML/HR. BOLUS GIVEN PER EMAR.
--- NOTE | 2022-11-18 18:12 | NUR ---
TRANSFERED TO ROOM 346 PT UP IN CHAIR WITH CHAIR ALARM UNDER HIM. WATCHING TV. DENIES OTHER NEEDS AT THIS TIME. INFORMED TO CALL FOR HELP PRIOR TO STANDING
--- NOTE | 2022-11-18 18:16 | NUR ---
TRANSFER: PATIENT TRANSFERRED TO MEDICAL FLOOR ROOM 346 BY WHEELCHAIR WITH ALL PERSONAL BELONGINGS. NS CONTINUES TO INFUSE AT 150 ML/HR. UP TO BATHROOM WITH ONE PERSON ASSIST AND FWW. NEEDING REMINDERS AND ENCOURAGMENT TO GET UP AND VOID. PATIENT VOIDING WNL. VITAL SIGNS REMAIN STABLE. CONTINUES TO SHOW SR WITH HR 80'S. ON ROOM AIR. SON JEY AND DAUGHTER AJ CALLED AND NOTIFIED OF TRANSFER. REPORTED OFF TO MEDICAL FLOOR RN.
[2022-11-18] MEDS ORDERED: OXYB5 PO (20:34)
[2022-11-19 05:10] LABS: BASOPHILS ABSOLUTE AUTO 0.07 K/mm3 (0.00-0.23); BASOPHILS PERCENT AUTO 1 % (0-2); EOSINOPHILS ABSOLUTE AUTO 0.07 K/mm3 (0.00-0.68); EOSINOPHILS PERCENT AUTO 1 % (0-6); Hematocrit 36.5 % (37.0-53.0); Hemoglobin 12.6 g/dL (13.5-17.5); IMMATURE GRAN ABSOLUTE AUTO 0.13 K/mm3 (0.00-0.10); IMMATURE GRAN PERCENT AUTO 2 % (0-1); LYMPHOCYTES PERCENT AUTO 10 % (21-46); MONOCYTES PERCENT AUTO 22 % (4-13); Mean Corpuscular HGB 31.2 pg (26.0-34.0); Mean Corpuscular HGB Conc 34.5 g/dL (31.5-36.5); Mean Corpuscular Volume 90 fL (80-100); Mean Platelet Volume 9.6 fL (9.1-12.4); NEUTROPHILS ABSOLUTE AUTO 5.51 K/mm3 (1.96-9.15); NEUTROPHILS PERCENT AUTO 66 % (41-73); Platelet Count 129 K/mm3 (150-400); RDW Coefficient Variation 15.3 % (11.7-14.2); RDW Standard Deviation 50.9 fL (35.1-46.3); Red Blood Cell Count 4.04 M/mm3 (4.30-5.90); White Blood Cell Count 8.38 K/mm3 (4.00-11.30)
[2022-11-19 05:48] LABS: Albumin, Blood 3.1 g/dL (3.4-5.0); Albumin/Globulin Ratio 0.9 (0.8-1.8); Bilirubin, Total 0.7 mg/dL (0.1-1.0); Bun/Creatinine Ratio 12.5 (12.0-20.0); Calcium, Blood 8.6 mg/dL (8.5-10.1); Creatinine, Blood 1.12 mg/dL (0.60-1.20); Globulin, Blood 3.5 g/dL (2.2-4.0); Potassium, Blood 3.8 mmol/L (3.5-5.5); Total Protein, Blood 6.6 g/dL (6.4-8.2)
--- NOTE | 2022-11-19 05:51 | NUR ---
ORIENTED TO SELF, FORGETFUL, REPEATS SAME QUESTIONS MULTIPLE TIMES, ANXIOUS, REDIRECTABLE. IMPULSIVE. X1 ASSIST TO BATHROOM. BM 11/19. COOPERATIVE WITH CARES. ATTEMPTED TO TURN OFF CHAIR ALARM WHEN HE STOOD UP. TACHYCARDIC, KATHRYN WITH ACTIVITY, HR SUSTAINS 130'S IN BATHROOM.
--- NOTE | 2022-11-19 16:41 | NUR ---
SHIFT SUMMARY PT A&OX2, COOPERATIVE WITH CARE, FREQUENTLY FORGETFUL/CONFUSED, [place]. PT DID NOT GET MUCH SLEEP AND WOULD ASK REPETITIVE QUESTIONS AFTER WAKING UP. HAD TO BE REMINDED ABOUT BEING IN THE HOSPITAL. DENIED PAIN T/O SHIFT. LUNGS SOUND CLEAR/DIM BILATERALLY, OCCASIONAL INCREASED RR, O2 SATS WNL. SOB WITH EXERTION OR LONG PERIODS OF TALKING. PT FLIPPED FROM AFIB TO SR T/O THE DAY, HR RANGING FROM 80'S TO 120'S. PT NOTED TO BE SOB WHEN IN AFIB. ELEVATED SBP EARLY IN THE SHIFT, HYDRALAZINE ORDERED AND GIVEN. SKIN TEAR ON ELBOW CLEANSED WITH NS AND COVERED WITH BANDAGE. NO ACUTE CHANGES DURING THIS SHIFT. PT CURRENTLY SITTING UP IN CHAIR WITH A CHAIR ALARM, CALL LIGHT WITHIN REACH.
--- NOTE | 2022-11-20 06:05 | NUR ---
ORIENTED TO SELF, REPETATIVE QUESTIONS, ANXIOUS, PLEASANT AND COOPERATIVE. HYPERTENSIVE WITH SBP IN 150S-160S. 1 OCCURRENCE OF A FLUTTER WITH A 2.4 SECOND PAUSE, ASYMPTOMATIC. ALTERNATES BETWEEN AFIB AND SR. LAST BM 11/19. AMBULATES X1 ASSIST TO TOILET. DOES NOT USE CALL LIGHT, BED ALARM IN PLACE.
[2022-11-20 07:45] LABS: Albumin, Blood 2.7 g/dL (3.4-5.0); Albumin/Globulin Ratio 0.8 (0.8-1.8); Bilirubin, Total 0.7 mg/dL (0.1-1.0); Bun/Creatinine Ratio 11.6 (12.0-20.0); Calcium, Blood 8.5 mg/dL (8.5-10.1); Creatinine, Blood 0.95 mg/dL (0.60-1.20); Globulin, Blood 3.3 g/dL (2.2-4.0); Potassium, Blood 3.7 mmol/L (3.5-5.5)
--- NOTE | 2022-11-20 07:54 | NUR ---
ASSUMED CARE OF PT- BEDSIDE REPORT COMPLETED WITH NIGHT RN. PER REPORT THE PT HAS AN ORDER FOR NS THAT WAS DC'D. ORDER STILL PRESENT IN EMAR, CALLED DR MORENO TO CLARIFY. ORDER DC'D PER DR MORENO'S ORDER. ON MORNING ASSESSMENT IT WAS NOTED THE PT RIGHT PEDAL PULSE WAS NOT PALPABLE, IT WAS EASILY FOUND WITH DOPPLER, ALSO NOTED MORE EDEMA IN THE RLE WHEN COMPARED TO THE LLE.
--- NOTE | 2022-11-20 14:45 | NUR ---
[facility] CALLED- PT HAS AN ORDER FOR ZIO PATCH OUTPT MONITOR. [facility] STAFF CAME UP AND PLACED THE MONITOR.
[2022-11-20] MEDS ORDERED: ONDA4ODT MM (15:01)
[2022-11-20] MEDS ORDERED: ASPI81CH PO (15:01)
[2022-11-20] MEDS ORDERED: VISBIOME 112.51 EACH PO (15:02)
[2022-11-20] MEDS ORDERED: MIRALAX11910 PO (15:03)
--- NOTE | 2022-11-20 15:32 | NUR ---
DISCHARGE NOTE- PT WAS GIVEN VERBAL AND WRITTEN DISCHARGE INSTRUCTONS ALONG WITH HIS SON, SON ACKNOWLEDGED UNDERSTANIG OF THESE ORDERS. MEDS WERE FAXED TO [facility] ON [address] PER PT REQUEST, SON IS AWARE. PT HAD HIS ZIO PATCH PLACED PRIOR TO DISCHARGE. IV AND TELE DC'D PRIOR TO DISCHARGE. PT ESCORTED OUT VIA WC BY [facility] [employer], NO S&S OF DISTRESS NOTED AT THE TIME OF DISCHARGE.
== END 2022-11-20 15:33 | disposition home health service (06) | DRG 557 ==
LOC: ER 15:14 → PCU 18:54 → MEDS 11-18 18:03
PROVIDERS: Emergency Medicine; Nurse Practitioner Acute Care; Student in an Organized Health Care Education/Training Program; ADMIT Internal Medicine
DX: M62.82 Rhabdomyolysis (principal); J15.6 Pneumonia due to other Gram-negative bacteria; N17.9 Acute kidney failure, unspecified; I10 Essential (primary) hypertension; E11.9 Type 2 diabetes mellitus without complications; M54.2 Cervicalgia; G89.29 Other chronic pain; E86.0 Dehydration; I48.0 Paroxysmal atrial fibrillation; R94.31 Abnormal electrocardiogram [ECG] [EKG]; E78.49 Other hyperlipidemia; G47.00 Insomnia, unspecified; M10.9 Gout, unspecified; D51.0 Vitamin B12 deficiency anemia due to intrinsic factor deficiency; K21.9 Gastro-esophageal reflux disease without esophagitis; C61 Malignant neoplasm of prostate; Z86.73 Personal history of transient ischemic attack (TIA), and cerebral infarction without residual deficits; Z85.828 Personal history of other malignant neoplasm of skin; Z28.21 Immunization not carried out because of patient refusal; Z86.718 Personal history of other venous thrombosis and embolism; Z90.89 Acquired absence of other organs; Z98.890 Other specified postprocedural states; Z88.0 Allergy status to penicillin; Z88.2 Allergy status to sulfonamides; Z79.899 Other long term (current) drug therapy
CPT/HCPCS: 36415; 70450; 71045; 73070; 74177; 80053; 81001; 82550; 82553; 82947; 83036; 83735; 83880; 84100; 84145; 84484; 84550; 85025; 93005; 93010; 93246; 93306; 96361; 96365-59; 96374; 96375; 97110; 97129; 97162; 97165; 97168; 97530; 99285-25; A9270; G0378; J0360; J0456; J0696; J2270; J7030; J7040; J7050; Q9967

== ENCOUNTER → 2023-01-22 | Outpatient (CLI) | payer MEDICARE, OTHER ==
[~2023-01-22] MED LIST changes: +ASPI81CH PO; +GABA300 PO; +MIRALAX11910 PO; +ONDA4ODT MM; +OXYB5 PO; +TIZA4 PO; +VISBIOME 112.51 EACH PO
[2023-01-22 13:55] LABS: BASOPHILS ABSOLUTE AUTO 0.03 K/mm3 (0.00-0.23); BASOPHILS PERCENT AUTO 1 % (0-2); EOSINOPHILS ABSOLUTE AUTO 0.07 K/mm3 (0.00-0.68); EOSINOPHILS PERCENT AUTO 2 % (0-6); Hematocrit 40.6 % (37.0-53.0); Hemoglobin 13.4 g/dL (13.5-17.5); IMMATURE GRAN ABSOLUTE AUTO 0.03 K/mm3 (0.00-0.10); IMMATURE GRAN PERCENT AUTO 1 % (0-1); LYMPHOCYTES ABSOLUTE AUTO 0.59 K/mm3 (0.84-5.20); LYMPHOCYTES PERCENT AUTO 15 % (21-46); MONOCYTES ABSOLUTE AUTO 0.58 K/mm3 (0.16-1.47); MONOCYTES PERCENT AUTO 14 % (4-13); Mean Corpuscular HGB 31.3 pg (26.0-34.0); Mean Corpuscular Volume 95 fL (80-100); Mean Platelet Volume 10.2 fL (9.1-12.4); NEUTROPHILS ABSOLUTE AUTO 2.77 K/mm3 (1.96-9.15); NEUTROPHILS PERCENT AUTO 68 % (41-73); Platelet Count 133 K/mm3 (150-400); RDW Coefficient Variation 14.6 % (11.7-14.2); RDW Standard Deviation 51.3 fL (35.1-46.3); Red Blood Cell Count 4.28 M/mm3 (4.30-5.90); White Blood Cell Count 4.07 K/mm3 (4.00-11.30)
[2023-01-22 14:11] LABS: Alanine Aminotransfer (ALT/SGP 26 U/L (12-78); Albumin, Blood 3.5 g/dL (3.4-5.0); Alk Phos 108 U/L (50-136); Anion Gap 4 mmol/L (6-16); Aspartate Aminotrans (AST/SGOT 15 U/L (12-37); Bilirubin, Total 0.7 mg/dL (0.1-1.0); Blood Urea Nitrogen 15 mg/dL (8-24); Bun/Creatinine Ratio 9.3 (12.0-20.0); CHOL/HDL RATIO 5.1; CO2, Blood 28 mmol/L (21-32); Calcium, Blood 8.8 mg/dL (8.5-10.1); Chloride, Blood 109 mmol/L (98-108); Cholesterol 216 mg/dL (50-200); Creatinine, Blood 1.62 mg/dL (0.60-1.20); Globulin, Blood 3.5 g/dL (2.2-4.0); Glomerular Filtration Rate 41 (60-); Glucose, Blood 112 mg/dL (70-99); HDL Cholesterol 42 mg/dL (>39); LDL/HDL RATIO 3.2; Low Density Lipoprotein Chol 135 mg/dL (0-110); Potassium, Blood 3.8 mmol/L (3.5-5.5); Prostate Specific Antigen 0.441 ng/mL (0.000-4.000); Sodium, Blood 141 mmol/L (136-145); Triglycerides 194 mg/dL (30-160); Uric Acid, Blood 5.2 mg/dL (3.5-7.2); Very Low Density Lipoprot Chol 38 mg/dL (6-32)
== END | disposition home or self-care (01) ==
LOC: LAB 11:56 → LAB SHORT 11:56
PROVIDERS: Family Medicine
DX: C61 Malignant neoplasm of prostate (principal)
CPT/HCPCS: 80053; 80061; 84153; 84550; 85025

== ENCOUNTER 2023-02-18 06:34 | Inpatient (IN) | payer MEDICARE, OTHER ==
[~2023-02-18] VITALS: Ht 172.7 cm; Wt 102.9 kg
[2023-02-18 06:56] LABS: BASOPHILS ABSOLUTE AUTO 0.04 K/mm3 (0.00-0.23); BASOPHILS PERCENT AUTO 0 % (0-2); EOSINOPHILS PERCENT AUTO 1 % (0-6); Hematocrit 40.3 % (37.0-53.0); Hemoglobin 13.5 g/dL (13.5-17.5); IMMATURE GRAN ABSOLUTE AUTO 0.16 K/mm3 (0.00-0.10); IMMATURE GRAN PERCENT AUTO 1 % (0-1); LYMPHOCYTES ABSOLUTE AUTO 0.48 K/mm3 (0.84-5.20); LYMPHOCYTES PERCENT AUTO 3 % (21-46); MONOCYTES ABSOLUTE AUTO 1.42 K/mm3 (0.16-1.47); MONOCYTES PERCENT AUTO 9 % (4-13); Mean Corpuscular HGB 30.8 pg (26.0-34.0); Mean Corpuscular HGB Conc 33.5 g/dL (31.5-36.5); Mean Corpuscular Volume 92 fL (80-100); Mean Platelet Volume 10.8 fL (9.1-12.4); NEUTROPHILS ABSOLUTE AUTO 13.11 K/mm3 (1.96-9.15); NEUTROPHILS PERCENT AUTO 86 % (41-73); Platelet Count 108 K/mm3 (150-400); RDW Coefficient Variation 14.1 % (11.7-14.2); RDW Standard Deviation 47.2 fL (35.1-46.3); Red Blood Cell Count 4.39 M/mm3 (4.30-5.90); White Blood Cell Count 15.31 K/mm3 (4.00-11.30)
[2023-02-18 07:15] LABS: Albumin, Blood 3.6 g/dL (3.4-5.0); Albumin/Globulin Ratio 1.1 (0.8-1.8); Bilirubin, Total 1.3 mg/dL (0.1-1.0); Bun/Creatinine Ratio 12.1 (12.0-20.0); Creatinine, Blood 1.32 mg/dL (0.60-1.20); Globulin, Blood 3.4 g/dL (2.2-4.0); Potassium, Blood 3.8 mmol/L (3.5-5.5)
[2023-02-18] MEDS ORDERED: ALLO300 PO (08:07)
[2023-02-18] MEDS ORDERED: LASIX40 MG PO (08:08)
[2023-02-18] MEDS ORDERED: TRAZ50 PO (08:09)
[2023-02-18 08:31] LABS: Adenovirus Not Detected (NOT DETECT); Bordetella pertussis Not Detected (NOT DETECT); Chlamydophila pneumoniae Not Detected (NOT DETECT); Coronavirus 229E Not Detected (NOT DETECT); Coronavirus HKU1 Not Detected (NOT DETECT); Coronavirus NL63 Not Detected (NOT DETECT); Coronavirus OC43 Not Detected (NOT DETECT); Human Metapneumovirus Not Detected (NOT DETECT); Human Rhinovirus/Enterovirus Not Detected (NOT DETECT); Influenza A/2009-H1 Not Detected (NOT DETECT); Influenza A/H1 Not Detected (NOT DETECT); Influenza A/H3 Not Detected (NOT DETECT); Influenza B Not Detected (NOT DETECT); Mycoplasma pneumoniae Not Detected (NOT DETECT); Parainfluenza Virus 1 Not Detected (NOT DETECT); Parainfluenza Virus 2 Not Detected (NOT DETECT); Parainfluenza Virus 3 Not Detected (NOT DETECT); Parainfluenza Virus 4 Not Detected (NOT DETECT); Respiratory Syncytial Virus Not Detected (NOT DETECT); SARS-Cov-2 (COVID-19), BioFire Not Detected (NOT DETECT)
[2023-02-18 10:21] VITALS: BP 131/63
[2023-02-18 15:54] VITALS: BP 112/62
--- NOTE | 2023-02-18 17:59 | NUR ---
SHIFT SUMMARY 1013 RECEIVED PT TO RM 347 [facility] FROM [facility]. PT ABLE TO TX SELF TO BED WITH SBA. MORBIDLY OBESE, WEAK, AND SOB. PT ADMITTED FOR BACTERIAL PNM. PT IS A&O, PLEASANT AND CO-OP, BUT VERY HABEMATOLEL. UP WITH SBA USING FWW TO BTHRM. PT REPORTED THAT [facility] PT'S SON IN TO VISIT AND CK ON PT. HOME MED LIST UPDATED FROM THE MED LIST SENT BY [facility]". CURRENTLY SITTING UP EATING DINNER. NO C/O. CALL LT IN REACH.
[2023-02-18 21:50] VITALS: BP 102/57
[2023-02-18] MEDS ORDERED: Acetaminophen650 M1 PO (22:03)
[2023-02-18] MEDS ORDERED: ALUM-MAG HYDRO360 M1 PO (22:06)
[2023-02-18] MEDS ORDERED: GABA300 PO (22:09)
[2023-02-18] MEDS ORDERED: LOPE2C PO (22:10)
[2023-02-18] MEDS ORDERED: [UNRECOGNIZED DRUG - OTHER] TOP (22:13)
[2023-02-18] MEDS ORDERED: SENNA LAXATIVE8.6 MG PO (22:18)
--- NOTE | 2023-02-19 04:43 | NUR ---
SHIFT SUMMARY: PT A&O X4. PT PLEASANT AND COOPERATIVE WITH CARE. PT CURRENTLY ON 3L NC TOLERATING WELL. PT SB - ONE PERSON ASSIST TO TOILET. PT HAD MODERATE ABDOMINAL PAIN IN BEGINNING OF SHIFT. ZOFRAN GIVEN PER EMAR. PT RECEIVED MIRALAX ON DAY SHIFT. PT HAD LARGE CONTINENT BM THIS SHIFT. PT STATED HE FELT MUCH BETTER AFTER BM. PT VERY COMANCHE. PT STATED HIS HEARING AIDS BROKE PRIOR TO ADMISSION. PT RECEIVING IV ABX FOR R. LOWER LOBE PNEUMONIA. PT HAS SLEPT MAJORITY OF THE EVENING W/O COMPLAINTS. CALL LIGHT IN REACH. BED IN LOWEST POSITION. WILL CONTINUE TO MONITOR.
[2023-02-19 05:28] VITALS: BP 119/65
[2023-02-19 05:34] LABS: BASOPHILS ABSOLUTE AUTO 0.05 K/mm3 (0.00-0.23); BASOPHILS PERCENT AUTO 0 % (0-2); EOSINOPHILS ABSOLUTE AUTO 0.06 K/mm3 (0.00-0.68); EOSINOPHILS PERCENT AUTO 0 % (0-6); Hematocrit 35.7 % (37.0-53.0); Hemoglobin 11.9 g/dL (13.5-17.5); IMMATURE GRAN PERCENT AUTO 1 % (0-1); LYMPHOCYTES ABSOLUTE AUTO 0.75 K/mm3 (0.84-5.20); LYMPHOCYTES PERCENT AUTO 5 % (21-46); MONOCYTES ABSOLUTE AUTO 1.71 K/mm3 (0.16-1.47); MONOCYTES PERCENT AUTO 12 % (4-13); Mean Corpuscular HGB 30.7 pg (26.0-34.0); Mean Corpuscular HGB Conc 33.3 g/dL (31.5-36.5); Mean Corpuscular Volume 92 fL (80-100); Mean Platelet Volume 10.6 fL (9.1-12.4); NEUTROPHILS ABSOLUTE AUTO 12.07 K/mm3 (1.96-9.15); NEUTROPHILS PERCENT AUTO 82 % (41-73); Platelet Count 83 K/mm3 (150-400); RDW Coefficient Variation 14.4 % (11.7-14.2); RDW Standard Deviation 48.1 fL (35.1-46.3); Red Blood Cell Count 3.88 M/mm3 (4.30-5.90); White Blood Cell Count 14.74 K/mm3 (4.00-11.30)
[2023-02-19 06:07] LABS: Bun/Creatinine Ratio 17.9 (12.0-20.0); Calcium, Blood 8.3 mg/dL (8.5-10.1); Creatinine, Blood 1.4 mg/dL (0.60-1.20); Free Thyroxine 0.97 ng/dL (0.70-1.60)
[2023-02-19 07:37] VITALS: BP 130/69
[2023-02-19 15:20] VITALS: BP 104/59
--- NOTE | 2023-02-19 18:03 | NUR ---
NO ACUTE CHANGES PT AO AND COOPERATIVE OF CARE. PT RESTING IN BED TODAY. CALL LIGHT WITHIN REACH. WILL CONTINUE TO MONITOR.
[2023-02-19 20:25] VITALS: BP 121/59
--- NOTE | 2023-02-20 04:19 | NUR ---
SHIFT SUMMERY. PT CALLS TO GO TO BR PT USING WALKER AND SBA, PT APPEARS TO BE SEADY ON HIS FEET. PT AMBULATED TO BR EARLYIER AND THEN BACK TO BED. PT CALLED LATTER IN THE NIGHT, PT C/O GENERLIZED PAIN AND WANTED PAIN MED FOR GENERLIZED PAIN PT MEDICATED AND THEN WENT BACK TO SLEEP. PT APPEARS TO BE ALSEEP AT THIS TIME. CALL LIGHT IN REACH.
[2023-02-20 04:38] VITALS: BP 122/59
[2023-02-20 06:26] LABS: Calcium, Blood 8.8 mg/dL (8.5-10.1); Creatinine, Blood 1.33 mg/dL (0.60-1.20); Potassium, Blood 4.9 mmol/L (3.5-5.5)
[2023-02-20 07:37] VITALS: BP 105/53
[2023-02-20 08:41] LABS: BASOPHILS ABSOLUTE AUTO 0.04 K/mm3 (0.00-0.23); BASOPHILS PERCENT AUTO 1 % (0-2); Base Excess Venous 2.7 mmol/L; Bicarbonate Venous 26.1 mmol/L (24.0-30.0); EOSINOPHILS ABSOLUTE AUTO 0.16 K/mm3 (0.00-0.68); EOSINOPHILS PERCENT AUTO 2 % (0-6); Hematocrit 34.1 % (37.0-53.0); Hemoglobin 11.1 g/dL (13.5-17.5); IMMATURE GRAN ABSOLUTE AUTO 0.04 K/mm3 (0.00-0.10); IMMATURE GRAN PERCENT AUTO 1 % (0-1); LYMPHOCYTES ABSOLUTE AUTO 0.59 K/mm3 (0.84-5.20); LYMPHOCYTES PERCENT AUTO 8 % (21-46); MONOCYTES ABSOLUTE AUTO 1.04 K/mm3 (0.16-1.47); MONOCYTES PERCENT AUTO 14 % (4-13); Mean Corpuscular HGB 30.6 pg (26.0-34.0); Mean Corpuscular HGB Conc 32.6 g/dL (31.5-36.5); Mean Corpuscular Volume 94 fL (80-100); Mean Platelet Volume 10.8 fL (9.1-12.4); NEUTROPHILS ABSOLUTE AUTO 5.66 K/mm3 (1.96-9.15); NEUTROPHILS PERCENT AUTO 75 % (41-73); PCO2 Venous 50.8 mmHg (38-42); Platelet Count 92 K/mm3 (150-400); RDW Coefficient Variation 14.3 % (11.7-14.2); RDW Standard Deviation 49.6 fL (35.1-46.3); Red Blood Cell Count 3.63 M/mm3 (4.30-5.90); White Blood Cell Count 7.53 K/mm3 (4.00-11.30); pH Blood Venous 7.35 (7.34-7.37)
[2023-02-20 15:17] VITALS: BP 125/69
[2023-02-20 15:18] VITALS: BP 125/69
--- NOTE | 2023-02-20 18:13 | NUR ---
SHIFT SUMMARY: NO ACUTE EVENTS. A&O X 3 BUT VERY FORGETFUL. DECLINED OFFERED PAIN MEDICATION. GETTING UP TO BR WITH SBA. WAS ON 2 L/MIN O2; REMOVED O2 FOR AN HOUR BUT O2 SAT WOULD NOT GO ABOVE 88%, SO O2 RE-PLACED AT 1 L/MIN NC WITH O2 SAT AT 92%. ABD CT COMPLETE. TOLERATING DIET. IS HOPING TO GO HOME TOMORROW.
[2023-02-20 19:45] VITALS: BP 143/82
--- NOTE | 2023-02-21 05:10 | NUR ---
SHIFT SUMMARY PT LAYING IN BED DURING BEDSIDE REPORT- PT TOOK SCHEDULED MEDICATIONS WITHOUT PROBLEMS- IV ABX INFUSED WITHOUT PROBLEMS - PT SLEPT T/O NIGHT- PT REPOSITIONED T/O NIGHT WITHOUT PROBLEMS - BED LOW POSITION, CALL LIGHT IN REACH, BED ALARM IN PLACE
[2023-02-21 05:37] LABS: BASOPHILS ABSOLUTE AUTO 0.04 K/mm3 (0.00-0.23); BASOPHILS PERCENT AUTO 1 % (0-2); EOSINOPHILS ABSOLUTE AUTO 0.11 K/mm3 (0.00-0.68); EOSINOPHILS PERCENT AUTO 2 % (0-6); Hematocrit 32.4 % (37.0-53.0); Hemoglobin 10.8 g/dL (13.5-17.5); IMMATURE GRAN ABSOLUTE AUTO 0.06 K/mm3 (0.00-0.10); IMMATURE GRAN PERCENT AUTO 1 % (0-1); LYMPHOCYTES ABSOLUTE AUTO 0.52 K/mm3 (0.84-5.20); LYMPHOCYTES PERCENT AUTO 8 % (21-46); MONOCYTES ABSOLUTE AUTO 0.85 K/mm3 (0.16-1.47); MONOCYTES PERCENT AUTO 13 % (4-13); Mean Corpuscular HGB 30.9 pg (26.0-34.0); Mean Corpuscular HGB Conc 33.3 g/dL (31.5-36.5); Mean Corpuscular Volume 93 fL (80-100); Mean Platelet Volume 10.8 fL (9.1-12.4); NEUTROPHILS ABSOLUTE AUTO 4.76 K/mm3 (1.96-9.15); NEUTROPHILS PERCENT AUTO 75 % (41-73); Platelet Count 101 K/mm3 (150-400); RDW Coefficient Variation 14.4 % (11.7-14.2); RDW Standard Deviation 48.9 fL (35.1-46.3); Red Blood Cell Count 3.49 M/mm3 (4.30-5.90); White Blood Cell Count 6.34 K/mm3 (4.00-11.30)
[2023-02-21 05:52] LABS: Bun/Creatinine Ratio 18.1 (12.0-20.0); Calcium, Blood 9.2 mg/dL (8.5-10.1); Creatinine, Blood 1.16 mg/dL (0.60-1.20); Potassium, Blood 4.2 mmol/L (3.5-5.5)
[2023-02-21 06:56] VITALS: BP 136/53
[2023-02-21 07:51] VITALS: BP 146/72
[2023-02-21] MEDS ORDERED: FURO40 PO (15:46)
[2023-02-21] MEDS ORDERED: DOXY100 PO (15:48)
--- NOTE | 2023-02-21 16:30 | NUR ---
DC HOME WRITTEN & VERBAL DC INSTRUCTIONS GIVEN TO PT WITH SON PRESENT, BOTH VERBALIZED GOOD UNDERSTANDING. PIV DC'D WITH CATH TIP INTACT, NO REDNESS OR SWELLING NOTED. NEW SCRIPT FAXED TO [facility] ON [address] PER PT REQUEST. PT SELF AMBULATED OUT TO SON'S VEHICLE WITH ALL PERSONAL BELONGINGS, WITH RN ACCOMPANY.
== END 2023-02-21 16:27 | disposition home or self-care (01) | DRG 871 ==
LOC: ER 06:34 → MEDS 08:54
PROVIDERS: Student in an Organized Health Care Education/Training Program; ADMIT Internal Medicine
DX: A41.9 Sepsis, unspecified organism (principal); J15.9 Unspecified bacterial pneumonia; J96.91 Respiratory failure, unspecified with hypoxia; I50.30 Unspecified diastolic (congestive) heart failure; N17.9 Acute kidney failure, unspecified; I13.0 Hypertensive heart and chronic kidney disease with heart failure and stage 1 through stage 4 chronic kidney disease, or unspecified chronic kidney disease; E66.2 Morbid (severe) obesity with alveolar hypoventilation; E87.20 Acidosis, unspecified; R65.20 Severe sepsis without septic shock; E11.22 Type 2 diabetes mellitus with diabetic chronic kidney disease; N18.30 Chronic kidney disease, stage 3 unspecified; I87.002 Postthrombotic syndrome without complications of left lower extremity; G89.29 Other chronic pain; I05.9 Rheumatic mitral valve disease, unspecified; I48.0 Paroxysmal atrial fibrillation; I25.10 Atherosclerotic heart disease of native coronary artery without angina pectoris; M54.9 Dorsalgia, unspecified; M54.2 Cervicalgia; G31.84 Mild cognitive impairment of uncertain or unknown etiology; R94.31 Abnormal electrocardiogram [ECG] [EKG]; Z20.822 Contact with and (suspected) exposure to COVID-19; Z85.46 Personal history of malignant neoplasm of prostate; Z90.89 Acquired absence of other organs; Z98.890 Other specified postprocedural states; I25.2 Old myocardial infarction; Z88.2 Allergy status to sulfonamides; Z86.718 Personal history of other venous thrombosis and embolism; Z88.1 Allergy status to other antibiotic agents; Z88.8 Allergy status to other drugs, medicaments and biological substances; Z79.82 Long term (current) use of aspirin; Z79.811 Long term (current) use of aromatase inhibitors; Z79.899 Other long term (current) drug therapy; Z91.81 History of falling; Z68.34 Body mass index [BMI] 34.0-34.9, adult
CPT/HCPCS: 0202U; 36415; 71045; 74150; 80048; 80053; 82803; 82947; 83605; 83735; 83880; 84145; 84439; 84443; 84484; 85025; 87040; 93005; 93010; 94640; 94664; 94760; 94761; 94762; 96365; 96367; 96375; 99285-25; A9270; J0696; J1650; J3475

== ENCOUNTER 2023-04-03 09:51 | Inpatient (IN) | payer MEDICARE, OTHER ==
[~2023-04-03] VITALS: Ht 172.7 cm; Wt 102.6 kg
[~2023-04-03 09:51] MED LIST changes: +ALLO300 PO; +ALUM-MAG HYDRO360 M1 PO; +Acetaminophen650 M1 PO; +DOXY100 PO; +LASIX40 MG PO; +LOPE2C PO; +SENNA LAXATIVE8.6 MG PO; +TRAZ50 PO; +[UNRECOGNIZED DRUG - OTHER] TOP
[2023-04-03 10:18] LABS: Source, Urine Voided
[2023-04-03 10:35] LABS: Appearance, Urine Clear (Clear); Bilirubin, Urine Neg (Neg); Blood, Urine Neg (Neg); Color, Urine Yellow (P-Yellow); Glucose Qualitative, Urine Neg (Neg); Ketones, Urine Neg (Neg); Leukocyte Esterase, Urine Neg (Neg); Nitrite, Urine Neg (Neg); Protein, Urine 1+ (Neg); Specific Gravity, Urine 1.015 (1.003-1.022); Urobilinogen, Urine NORM (Normal)
[2023-04-03 10:37] LABS: BASOPHILS ABSOLUTE AUTO 0.04 K/mm3 (0.00-0.23); BASOPHILS PERCENT AUTO 1 % (0-2); EOSINOPHILS ABSOLUTE AUTO 0.11 K/mm3 (0.00-0.68); EOSINOPHILS PERCENT AUTO 2 % (0-6); Hematocrit 38.7 % (37.0-53.0); Hemoglobin 12.8 g/dL (13.5-17.5); IMMATURE GRAN PERCENT AUTO 4 % (0-1); LYMPHOCYTES ABSOLUTE AUTO 0.62 K/mm3 (0.84-5.20); LYMPHOCYTES PERCENT AUTO 14 % (21-46); MONOCYTES ABSOLUTE AUTO 0.71 K/mm3 (0.16-1.47); MONOCYTES PERCENT AUTO 16 % (4-13); Mean Corpuscular HGB 30.8 pg (26.0-34.0); Mean Corpuscular HGB Conc 33.1 g/dL (31.5-36.5); Mean Corpuscular Volume 93 fL (80-100); Mean Platelet Volume 10.7 fL (9.1-12.4); NEUTROPHILS ABSOLUTE AUTO 2.89 K/mm3 (1.96-9.15); NEUTROPHILS PERCENT AUTO 63 % (41-73); Platelet Count 161 K/mm3 (150-400); RDW Coefficient Variation 15.9 % (11.7-14.2); Red Blood Cell Count 4.16 M/mm3 (4.30-5.90); White Blood Cell Count 4.57 K/mm3 (4.00-11.30)
[2023-04-03 10:59] LABS: Albumin, Blood 3.8 g/dL (3.4-5.0); Albumin/Globulin Ratio 1.1 (0.8-1.8); Bilirubin, Total 1.1 mg/dL (0.1-1.0); Bun/Creatinine Ratio 10.8 (12.0-20.0); Creatinine, Blood 1.57 mg/dL (0.60-1.20); Globulin, Blood 3.6 g/dL (2.2-4.0); Potassium, Blood 4.2 mmol/L (3.5-5.5); Total Protein, Blood 7.4 g/dL (6.4-8.2)
[2023-04-03] MEDS ORDERED: SULI150 PO (14:35)
[2023-04-03 14:38] VITALS: BP 146/85
--- NOTE | 2023-04-03 15:09 | NUR ---
Pt arrived to 342 via gurney from ED, he was able to stand and transfer to bed with sba, a/ox3, but very forgetful, pleasant and cooperative with care, follows commands well, reports pain in the back of his neck, lungs are clear in all nicole except right base is dim, on r/a at this time but appears sob, and reports sob, hrr, tele in place running aflutter rosy, dipping to the 30's for brief periods, no edema noted, ppp+1, cap refill<3sec vs stable, afebrile, piv site to rac, site is clear and patent, btx4, abd round soft nontender, voids without diff, skin c/w/d, sherry kinney, oriented to room layout and call system, call light in reach.
--- NOTE | 2023-04-03 15:26 | NUR ---
tele has called several times to report that his heart rate is in the 30's, hit 31 for a few beats, is sustaining more time, left msg for Dr. Mojica. pt laying in bed with eyes closed, call light in reach.
--- NOTE | 2023-04-03 18:20 | NUR ---
pt heart rate improved, in the 60 to 70's now, pt was never symptomatic, no further changes this shift. call light in reach.
--- NOTE | 2023-04-03 18:25 | NUR ---
pt denies any ignitable material throughout the day.
[2023-04-03 20:14] VITALS: BP 159/79
[2023-04-04 06:04] LABS: Hematocrit 37.2 % (37.0-53.0); Hemoglobin 12.7 g/dL (13.5-17.5); Mean Corpuscular HGB 30.8 pg (26.0-34.0); Mean Corpuscular HGB Conc 34.1 g/dL (31.5-36.5); Mean Corpuscular Volume 90 fL (80-100); Mean Platelet Volume 10.7 fL (9.1-12.4); Platelet Count 160 K/mm3 (150-400); RDW Coefficient Variation 15.6 % (11.7-14.2); RDW Standard Deviation 50.4 fL (35.1-46.3); Red Blood Cell Count 4.12 M/mm3 (4.30-5.90); White Blood Cell Count 5.35 K/mm3 (4.00-11.30)
[2023-04-04 06:50] LABS: Bun/Creatinine Ratio 11.6 (12.0-20.0); Creatinine, Blood 1.47 mg/dL (0.60-1.20); Magnesium, Blood 2.1 mg/dL (1.6-2.4); Potassium, Blood 3.5 mmol/L (3.5-5.5)
--- NOTE | 2023-04-04 06:50 | NUR ---
MIGNON WAS UP AT SIDE OF BED VERY FREQUENTLY TO VOID LARGE QUANTITIES IN THE URINAL OVERNIGHT. A&OX3, BUT EXTREMELY FORGETFUL. EACH TIME HE GOT UP, HE SET OFF THE ALARM. ABDOMEN IS SEVERLY DISTENDED AND VERY FIRM. GENERALIZED NON PITTING EDEMA AND 1+ ANKLE AND FEET EDEMA. 1-2/10 LEFT SIDED CHEST PAIN THAT LASTED FOR APPROXIMATELY 5 MINUTES EARLY IN THE EVENING. PATIENT STATED HE HAS HAD IT INTERMITTANTLY FOR A LONG TIME
[2023-04-04 07:26] VITALS: BP 161/69
[2023-04-04 14:37] VITALS: BP 122/75
--- NOTE | 2023-04-04 19:41 | NUR ---
SHIFT SUMMARY PATIENT [place] AND FORGETFUL. PATIENT UP OUT OF BED TO BR FREQUENTLY. PATIENT USING WALKER WITH AMBULATION. BED ALARM USED BECAUSE OF IMPULSIVENESS. PATIENT HAVING SOB WITH AMBULATION BUT RECOVERS WITH REST. TOLERATING DIET WELL AND DIURESING WITH LASIX. PLAN TO [facility] BACK [facility]. PATIENT ANXIOUS ABOUT BEING DISCHARGED. PATIENT C/O NECK AND SHOULDER PAIN AT TIMES. SON STATES THAT HE HAS BEEN SEEN BY A PROVIDER IN [place] AND IS NOT A SURGICAL CANDIDATE. PATIENT MEDICATED X1 WITH PAIN MEDS.
[2023-04-04 20:11] VITALS: BP 154/91
[2023-04-05 02:55] VITALS: BP 165/88
--- NOTE | 2023-04-05 04:31 | NUR ---
SHIFT SUMMARY ADMITTED FOR SOB/CHF EXACERBATION. FULL CODE. WE ARE DIURESING HIM. TELEMETRY: KANNAN @ 83 BPM. HE COMES FROM THE [facility] [place]. HE WILL DC BACK THERE WHEN STABLE. 1 ASSIST W/FWW - BRP. ON REGULAR DIET. HE IS EXTREMELY FORGETFUL, SEEMINGLY LITTLE SHORT TERM MEMORY. HE IS [place]. ON RA. HE IS CONTINENT AND CALLS FOR HIS NEEDS. 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
[2023-04-05 06:42] LABS: Albumin, Blood 3.3 g/dL (3.4-5.0); Anion Gap 9 mmol/L (6-16); Blood Urea Nitrogen 16 mg/dL (8-24); Bun/Creatinine Ratio 12.1 (12.0-20.0); CO2, Blood 24 mmol/L (21-32); Calcium, Blood 8.6 mg/dL (8.5-10.1); Chloride, Blood 108 mmol/L (98-108); Creatinine, Blood 1.32 mg/dL (0.60-1.20); Glomerular Filtration Rate 53 (60-); Glucose, Blood 107 mg/dL (70-99); Magnesium, Blood 2.1 mg/dL (1.6-2.4); Phosphorus, Blood 3.6 mg/dL (2.5-4.9); Potassium, Blood 3.4 mmol/L (3.5-5.5); Sodium, Blood 141 mmol/L (136-145)
[2023-04-05 07:27] VITALS: BP 159/68
--- NOTE | 2023-04-05 12:57 | NUR ---
PT AWAKE DURING SHIFT REPORT, PLEASANT AND CO-OP WITH CARE. VERY FORGETFUL WITH MINIMAL TO NO SHORT TERM MEMORY. PT WANTING TO GO HOME. UP INDEPENDENTLY IN AND TO BTHRM. PT ALSO WALKING IN HALLS INDEPENDENTLY. PER SHIFT REPORT, PT FROM [facility]. DR KILPATRICK IN TO SEE PT AND DISCUSSED PLAN OF CARE. PT OK TO D/C BACK TO [facility] PT VERY ANXIOUS TO LEAVE AND IMMEDIATELY REMOVED IV ACCESS AND TELE MX. D/C ORDERS PLACED. FAMILY AND STAFF FROM [facility] IN TO SEE PT AND WAITED FOR D/C ORDERS AND INSTRUCTIONS. PT ASSISTED OUT TO FAMILY'S CAR VIA W/C WITH BELONGINGS ON HIM.
== END 2023-04-05 11:56 | disposition home or self-care (01) | DRG 291 ==
LOC: ER 09:51 → MEDS 12:48
PROVIDERS: Emergency Medicine; ADMIT Internal Medicine
DX: I11.0 Hypertensive heart disease with heart failure (principal); I50.31 Acute diastolic (congestive) heart failure; N17.9 Acute kidney failure, unspecified; E11.9 Type 2 diabetes mellitus without complications; G89.29 Other chronic pain; G31.84 Mild cognitive impairment of uncertain or unknown etiology; M54.6 Pain in thoracic spine; E87.6 Hypokalemia; R10.13 Epigastric pain; I48.0 Paroxysmal atrial fibrillation; I25.10 Atherosclerotic heart disease of native coronary artery without angina pectoris; N40.0 Benign prostatic hyperplasia without lower urinary tract symptoms; R35.0 Frequency of micturition; E66.9 Obesity, unspecified; M54.2 Cervicalgia; I25.2 Old myocardial infarction; Z88.2 Allergy status to sulfonamides; Z88.1 Allergy status to other antibiotic agents; Z88.8 Allergy status to other drugs, medicaments and biological substances; Z79.82 Long term (current) use of aspirin; Z79.899 Other long term (current) drug therapy; Z79.2 Long term (current) use of antibiotics; Z86.718 Personal history of other venous thrombosis and embolism; Z85.46 Personal history of malignant neoplasm of prostate; Z90.89 Acquired absence of other organs; Z98.890 Other specified postprocedural states; Z68.34 Body mass index [BMI] 34.0-34.9, adult
CPT/HCPCS: 36415; 71045; 71046; 74177; 80048; 80053; 80069; 82947; 83690; 83735; 83880; 84145; 84443; 84484; 85025; 85027; 93005; 93010; 99285-25; A9270; J1650; J1940; Q9967

== ENCOUNTER → 2023-07-30 | Outpatient (CLI) | payer MEDICARE, OTHER ==
[~2023-07-30] MED LIST changes: +SULI150 PO
[2023-07-30 12:42] LABS: BASOPHILS ABSOLUTE AUTO 0.06 K/mm3 (0.00-0.23); BASOPHILS PERCENT AUTO 1 % (0-2); EOSINOPHILS ABSOLUTE AUTO 0.12 K/mm3 (0.00-0.68); EOSINOPHILS PERCENT AUTO 2 % (0-6); Hematocrit 40.3 % (37.0-53.0); Hemoglobin 13.3 g/dL (13.5-17.5); IMMATURE GRAN ABSOLUTE AUTO 0.28 K/mm3 (0.00-0.10); IMMATURE GRAN PERCENT AUTO 4 % (0-1); LYMPHOCYTES ABSOLUTE AUTO 0.55 K/mm3 (0.84-5.20); LYMPHOCYTES PERCENT AUTO 8 % (21-46); MONOCYTES PERCENT AUTO 13 % (4-13); Mean Corpuscular HGB 30.4 pg (26.0-34.0); Mean Corpuscular Volume 92 fL (80-100); NEUTROPHILS ABSOLUTE AUTO 4.93 K/mm3 (1.96-9.15); NEUTROPHILS PERCENT AUTO 72 % (41-73); RDW Coefficient Variation 15.2 % (11.7-14.2); RDW Standard Deviation 50.5 fL (35.1-46.3); Red Blood Cell Count 4.38 M/mm3 (4.30-5.90); White Blood Cell Count 6.84 K/mm3 (4.00-11.30)
[2023-07-30 12:53] LABS: Albumin, Blood 3.9 g/dL (3.4-5.0); Bilirubin, Total 0.9 mg/dL (0.1-1.0); Bun/Creatinine Ratio 11.6 (12.0-20.0); Calcium, Blood 9.2 mg/dL (8.5-10.1); Creatinine, Blood 1.99 mg/dL (0.60-1.20); Magnesium, Blood 2.1 mg/dL (1.6-2.4); Potassium, Blood 3.8 mmol/L (3.5-5.5); Total Protein, Blood 7.9 g/dL (6.4-8.2)
[2023-07-30 13:25] LABS: Mean Platelet Volume 10.6 fL (9.1-12.4); Platelet Count 128 K/mm3 (150-400)
== END | disposition home or self-care (01) ==
LOC: LAB SHORT 12:36 → LAB 12:36
PROVIDERS: Chiropractor
DX: R06.09 Other forms of dyspnea (principal)
CPT/HCPCS: 80053; 83735; 83880; 84484; 85025

== ENCOUNTER → 2023-07-31 | Outpatient (CLI) | payer MEDICARE, OTHER ==
[2023-07-31 14:56] LABS: Bun/Creatinine Ratio 13.3 (12.0-20.0); Calcium, Blood 9.3 mg/dL (8.5-10.1); Creatinine, Blood 1.96 mg/dL (0.60-1.20); Potassium, Blood 3.9 mmol/L (3.5-5.5)
== END ==
LOC: LAB 14:46 → LAB SHORT 14:46
PROVIDERS: Chiropractor
DX: I50.9 Heart failure, unspecified (principal)
CPT/HCPCS: 80048; 83735

== ENCOUNTER → 2023-08-01 | Outpatient (CLI) | payer MEDICARE, OTHER ==
[2023-08-01 11:04] LABS: Bun/Creatinine Ratio 13.5 (12.0-20.0); Calcium, Blood 8.9 mg/dL (8.5-10.1); Creatinine, Blood 1.92 mg/dL (0.60-1.20); Magnesium, Blood 2.2 mg/dL (1.6-2.4); Potassium, Blood 3.9 mmol/L (3.5-5.5)
== END ==
LOC: LAB 10:54 → LAB SHORT 10:54
PROVIDERS: Chiropractor
DX: I50.9 Heart failure, unspecified (principal)
CPT/HCPCS: 80048; 83735

== ENCOUNTER → 2023-08-26 | Outpatient (CLI) | payer MEDICARE, OTHER ==
[2023-08-26 14:59] LABS: Bun/Creatinine Ratio 15.6 (12.0-20.0); Calcium, Blood 9.6 mg/dL (8.5-10.1); Creatinine, Blood 1.79 mg/dL (0.60-1.20); Potassium, Blood 4.5 mmol/L (3.5-5.5)
== END ==
LOC: LAB 11:16 → LAB SHORT 11:16
PROVIDERS: Family Medicine
DX: I10 Essential (primary) hypertension (principal)
CPT/HCPCS: 80048

== ENCOUNTER → 2024-01-15 | Outpatient (CLI) | payer MEDICARE, OTHER ==
[2024-01-15 13:11] LABS: BASOPHILS ABSOLUTE AUTO 0.06 K/mm3 (0.00-0.23); BASOPHILS PERCENT AUTO 1 % (0-2); EOSINOPHILS ABSOLUTE AUTO 0.08 K/mm3 (0.00-0.68); EOSINOPHILS PERCENT AUTO 1 % (0-6); Hematocrit 42.6 % (37.0-53.0); Hemoglobin 14.9 g/dL (13.5-17.5); IMMATURE GRAN ABSOLUTE AUTO 0.14 K/mm3 (0.00-0.10); IMMATURE GRAN PERCENT AUTO 2 % (0-1); LYMPHOCYTES PERCENT AUTO 11 % (21-46); MONOCYTES ABSOLUTE AUTO 0.79 K/mm3 (0.16-1.47); MONOCYTES PERCENT AUTO 12 % (4-13); Mean Corpuscular HGB 32.8 pg (26.0-34.0); Mean Corpuscular Volume 94 fL (80-100); Mean Platelet Volume 10.3 fL (9.1-12.4); NEUTROPHILS ABSOLUTE AUTO 4.77 K/mm3 (1.96-9.15); NEUTROPHILS PERCENT AUTO 73 % (41-73); Platelet Count 148 K/mm3 (150-400); RDW Coefficient Variation 14.6 % (11.7-14.2); RDW Standard Deviation 49.7 fL (35.1-46.3); Red Blood Cell Count 4.54 M/mm3 (4.30-5.90); White Blood Cell Count 6.54 K/mm3 (4.00-11.30)
[2024-01-15 14:11] LABS: Alanine Aminotransfer (ALT/SGP 24 U/L (12-78); Albumin, Blood 3.9 g/dL (3.4-5.0); Alk Phos 123 U/L (50-136); Anion Gap 9 mmol/L (3-11); Aspartate Aminotrans (AST/SGOT 13 U/L (12-37); Bilirubin, Total 0.8 mg/dL (0.1-1.0); Blood Urea Nitrogen 19 mg/dL (8-24); CHOL/HDL RATIO 5.4; CO2, Blood 27 mmol/L (21-32); Calcium, Blood 9.2 mg/dL (8.5-10.1); Chloride, Blood 106 mmol/L (98-108); Cholesterol 220 mg/dL (50-200); Creatinine, Blood 1.72 mg/dL (0.60-1.20); Glomerular Filtration Rate 38 (60-); Glucose, Blood 142 mg/dL (70-99); HDL Cholesterol 41 mg/dL (>39); LDL/HDL RATIO 3.6; Low Density Lipoprotein Chol 147 mg/dL (0-110); Potassium, Blood 4.1 mmol/L (3.5-5.5); Prostate Specific Antigen 0.188 ng/mL (0.000-4.000); Sodium, Blood 138 mmol/L (136-145); Total Protein, Blood 7.9 g/dL (6.4-8.2); Triglycerides 158 mg/dL (30-160); Uric Acid, Blood 10.8 mg/dL (3.5-7.2); Very Low Density Lipoprot Chol 31 mg/dL (6-32)
== END | disposition home or self-care (01) ==
LOC: LAB SHORT 10:55 → LAB 10:55
PROVIDERS: Family Medicine
DX: C61 Malignant neoplasm of prostate (principal); I10 Essential (primary) hypertension; M10.9 Gout, unspecified; R73.01 Impaired fasting glucose
CPT/HCPCS: 80053; 80061; 83036; 84153; 84550; 85025